=== PATIENT | male | born 1950 | race Caucasian/White ===

== ENCOUNTER → 2017-09-08 16:43 | Outpatient (CLI) | payer BC, SELFPAY ==
[2017-09-08 18:24] LABS: AST(SGOT) 46 U/L (15-37); Alanine Aminotransfer ALT/SGPT 35 U/L (16-61); Albumin, Serum 2.4 g/dL (3.2-5.0); Alkaline Phosphatase 278 U/L (45-117); Anion Gap 4 (5-15); BUN 17 mg/dL (7-18); BUN/Creat Ratio 11.2 RATIO (10-20); Calcium,Total 8.1 mg/dL (8.5-10.1); Chloride 109 mmol/L (98-107); Cholesterol 101 mg/dL (200); Creatinine, Serum 1.52 mg/dL (0.70-1.30); EST Glomerular Filtration Rate 49 mL/min (>60); Est Glom Filt Rate - Afr Amer 59 mL/min (>60); Globulin 4.3 g/dL (2.2-4.2); Glucose 170 mg/dL (74-106); High Density Lipoprotein 35 mg/dL; Potassium 4.4 mmol/L (3.5-5.1); Protein, Total 6.7 g/dL (6.4-8.2); Sodium Level 140 mmol/L (136-145); Triglycerides 66 mg/dL; Very Low Density Lipoprotein 13 mg/dL (5-40)
[2017-09-09 06:57] LABS: Hemoglobin A1c 6.2 % (4.2-6.3)
== END ==
PROVIDERS: Family Provider Family Medicine; PCP Family Medicine; Visit Provider Family Medicine
DX: E11.9 Type 2 diabetes mellitus without complications (principal); K75.4 Autoimmune hepatitis
CPT/HCPCS: 36415; 80048; 80061; 80076; 82140; 83036

== ENCOUNTER → 2017-12-23 13:46 | Outpatient (CLI) | payer BC, SELFPAY ==
[2017-12-23 16:00] LABS: AST(SGOT) 46 U/L (15-37); Alanine Aminotransfer ALT/SGPT 37 U/L (16-61); Albumin, Serum 2.3 g/dL (3.2-5.0); Alkaline Phosphatase 264 U/L (45-117); Anion Gap 8 (5-15); BUN 19 mg/dL (7-18); BUN/Creat Ratio 12.1 RATIO (10-20); Bilirubin, Direct 1.06 mg/dL (0.00-0.30); Calcium,Total 8.2 mg/dL (8.5-10.1); Chloride 103 mmol/L (98-107); Cholesterol 98 mg/dL (200); Creatinine, Serum 1.57 mg/dL (0.70-1.30); EST Glomerular Filtration Rate 47 mL/min (>60); Est Glom Filt Rate - Afr Amer 57 mL/min (>60); Globulin 4.6 g/dL (2.2-4.2); Glucose 222 mg/dL (74-106); High Density Lipoprotein 42 mg/dL; Potassium 3.7 mmol/L (3.5-5.1); Protein, Total 6.9 g/dL (6.4-8.2); Sodium Level 139 mmol/L (136-145); Triglycerides 68 mg/dL; Very Low Density Lipoprotein 14 mg/dL (5-40)
== END ==
PROVIDERS: Family Provider Family Medicine; PCP Family Medicine; Visit Provider Family Medicine
DX: E11.9 Type 2 diabetes mellitus without complications (principal)
CPT/HCPCS: 36415; 80048; 80061; 80076

== ENCOUNTER 2018-01-21 04:33 | Emergency (ER) | payer BC, SELFPAY ==
[2018-01-21 04:34] VITALS: BP 156/66; PULSE 92; RESP 16; TEMP 36.6; O2SAT 94; BMI 37.4
--- NOTE | 2018-01-21 05:02 | RAD_ITS ---
STUDY: X-RAY CHEST REASON FOR EXAM: Male, 67 years old. Chest pain after recent fall. TECHNIQUE: Single AP portable view of the chest. COMPARISON: Prior comparison studies are not available for review at this time. FINDINGS: The patient has had a sternotomy. The lungs are expanded. There is mild interstitial thickening present in both lungs. There is suggestion for patchy left basilar airspace consolidation and/or atelectasis. This could represent pneumonia or sequela of pulmonary contusion. There is blunting of left lateral costophrenic angle, possibly secondary to small effusion. There is borderline cardiomegaly. Normal mediastinum and nurys. There is prominence of the pulmonary hilar arteries with peripheral pulmonary vascular congestion. There is atherosclerotic calcification of the aortic arch with tortuosity. There are diffuse degenerative changes of the visualized thoracic spine. Normal visualized ribs, clavicles, and shoulders. Surgical clips are visible in the epigastric area. RAD/Chest 1 View (Portable) IMPRESSION: 1. Patchy left basilar airspace disease possibly representing pneumonia, atelectasis or pulmonary hemorrhage. 2. Borderline cardiomegaly and mild pulmonary congestion. Electronically Signed: Lashell Glass MD at 8:05 EDT , Service support ,
--- NOTE | 2018-01-21 05:02 | EKG12_ITS ---
Test Reason : FALL Blood Pressure : / mmHG Vent. Rate : 092 BPM Atrial Rate : 092 BPM P-R Int : 166 ms QRS Dur : 098 ms QT Int : 394 ms P-R-T Axes : 044 033 048 degrees QTc Int : 487 ms Sinus rhythm with Premature atrial complexes Prolonged QT Abnormal ECG Confirmed by ANTONIA HARRY, CHRISTIE ([id number]), editor book FRAN DEL ROSARIO ([id number]) on 01/23/2018 3:09:38 PM Referred By: BETSY Confirmed By:CHRISTIE KNIGHT MD
--- NOTE | 2018-01-21 05:06 | RAD_ITS ---
STUDY: X-RAY - PELVIS AND LEFT HIP REASON FOR EXAM: Male, 67 years old. Fall. Left hip pain. TECHNIQUE: Radiological exam, hip, unilateral, with pelvis when performed; 2 or 3 views. COMPARISON: None. FINDINGS: There is increased stool in the visualized mildly distended rectosigmoid colon. There are atherosclerotic vascular calcifications of the pelvic arteries. Chronic cortical/bony changes of the superior iliac margins are seen bilaterally. Unremarkable sacroiliac joints and visualized sacrum. Normal bilateral superior and inferior pubic rami. Normal pubic symphysis. There is a partially impacted/angulated subcapital fracture of the left femoral neck demonstrated. Normal acetabulum. There is mild articular joint space narrowing of the hip. Degenerative spondylolysis of the visualized lumbosacral spine. A right hip mild degenerative arthrosis. RAD/HIP, UNI W/ Pelvis 2-3 Views IMPRESSION: An impacted/angulated subcapital fracture of the left femoral neck is demonstrated. Electronically Signed: Augustin Shaver MD at 8:23 EDT Tel , Service support ,
--- NOTE | 2018-01-21 05:10 | ED.VISSUMM ---
- ER Visit Summary Date of Service: 01/21/18 Chief Complaint: Left hip injury History of Present Illness: The patient is a 67 M brought by EMS for left hip injury occurring at 1:30 AM this morning. Some other states patient has a man cave away from the house, getting up off the recliner when he tripped falling back on the hip. Reported EMS was called for lift assist, he was placed back in the chair. Some other states called her to bring him in the house, she is unable to get him off the couch therefore EMS was called again. There is no second fall. History of previous orthopedic surgeries in [place], does not currently follow an orthopedist. Has had right ankle repair and left knee scopes. History of Navarrete with cirrhosis with previous paracentesis, none recently. He is on rifaximin mean. History of CABG surgery in the past, followed by Dr. Atkins. Denies any current anticoagulant including aspirin. There is no head injuries from the falls. No neck or back pain. Pain with movement in the left lower extremity. Physical Examination: General: Alert and oriented ?3, no acute distress HEENT: Normocephalic, atraumatic. Moist mucosa membranes Neck: supple, nontender. Cardiovascular: Regular rate and rhythm, no murmurs Respiratory: Normal breath sounds, symmetric, no distress Abdomen: Soft, nontender, distended, midline healed incision. Extremities: Left lower extremity: Shortened and externally rotated. Positive logroll. Neurovascular intact distally. Neuro: no focal neurological deficits. Test Results: EKG sinus rate of [address] or T wave changes. PACs noted. Chest x-ray negative. Left hip x-ray displaced left femoral neck fracture White count 7.5 hemoglobin 14.4. Platelets 67. Potassium 3.6. Creatinine 1.57. INR 1.5. ALT 44 AST 66 ALP 361 total bili 2.4. Emergency Department Course and Treatment: Patient with mechanical fall, left hip is shortened and externally rotated. Workup initiated x-ray confirms displaced left femoral neck fracture. Chest x-ray EKG stable. Patient history of Navarrete with cirrhosis, coagulopathy noted on labs with platelets 67. I did discuss with covering orthopedist, Dr. Genaro Glass, he discussed with medicine anesthesia and clear he would plan on surgery. I spoke with hospitalist Dr. Fontenot, who feels with his coagulopathy history he would require higher level of care with specialists. Discussed with patient and family, they would like to go to [place]. [facility] on page for discussion for transfer for further management. Patient did have creatinine 1.57, comparison old labs, this is stable from previous. Spoke with [facility] transfer line, they spoke with orthopedist Dr. Patel, they would like the patient to go through the ED for evaluation. I spoke with the ED physician Dr. Hendricks who will except for transfer. Treatment Plan: [] Disposition: Transfer Impression: 1. Closed left hip fracture 2. Navarrete with cirrhosis 3. Chronic kidney disease 4. Thrombocytopenia This note was generated with [employer] dictation software. It may contain incorrect words, spelling, and punctuation that were not noted in review of the chart prior to signing ED Disposition - Plan for ED Patient: Disposition: [facility] Chief Complaint: Fall Diagnosis: Closed left hip fracture, Liver cirrhosis secondary to NAVARRETE, Chronic kidney disease, Thrombocytopenia Referrals: Davonte Galo MD [Primary Care Provider] -
--- NOTE | 2018-01-21 05:13 | ED.DCSUM_ITS ---
- ER Visit Summary Date of Service: 01/21/18 Chief Complaint: Left hip injury History of Present Illness: The patient is a 67 M brought by EMS for left hip injury occurring at 1:30 AM this morning. Some other states patient has a man cave away from the house, getting up off the recliner when he tripped falling back on the hip. Reported EMS was called for lift assist, he was placed back in the chair. Some other states called her to bring him in the house, she is unable to get him off the couch therefore EMS was called again. There is no second fall. History of previous orthopedic surgeries in [place], does not currently follow an orthopedist. Has had right ankle repair and left knee scopes. History of Navarrete with cirrhosis with previous paracentesis, none recently. He is on rifaximin mean. History of CABG surgery in the past, followed by Dr. Atkins. Denies any current anticoagulant including aspirin. There is no head injuries from the falls. No neck or back pain. Pain with movement in the left lower extremity. Physical Examination: General: Alert and oriented ?3, no acute distress HEENT: Normocephalic, atraumatic. Moist mucosa membranes Neck: supple, nontender. Cardiovascular: Regular rate and rhythm, no murmurs Respiratory: Normal breath sounds, symmetric, no distress Abdomen: Soft, nontender, distended, midline healed incision. Extremities: Left lower extremity: Shortened and externally rotated. Positive logroll. Neurovascular intact distally. Neuro: no focal neurological deficits. Test Results: EKG sinus rate of [address] or T wave changes. PACs noted. Chest x-ray negative. Left hip x-ray displaced left femoral neck fracture White count 7.5 hemoglobin 14.4. Platelets 67. Potassium 3.6. Creatinine 1.57. INR 1.5. ALT 44 AST 66 ALP 361 total bili 2.4. Emergency Department Course and Treatment: Patient with mechanical fall, left hip is shortened and externally rotated. Workup initiated x-ray confirms displaced left femoral neck fracture. Chest x-ray EKG stable. Patient history of Navarrete with cirrhosis, coagulopathy noted on labs with platelets 67. I did discuss with covering orthopedist, Dr. Genaro Glass, he discussed with medicine anesthesia and clear he would plan on surgery. I spoke with hospitalist Dr. Fontenot, who feels with his coagulopathy history he would require higher level of care with specialists. Discussed with patient and family, they would like to go to [place]. [facility] on page for discussion for transfer for further management. Patient did have creatinine 1.57, comparison old labs, this is stable from previous. Spoke with [facility] transfer line, they spoke with orthopedist Dr. Patel, they would like the patient to go through the ED for evaluation. I spoke with the ED physician Dr. Hendricks who will except for transfer. Treatment Plan: [] Disposition: Transfer Impression: 1. Closed left hip fracture 2. Navarrete with cirrhosis 3. Chronic kidney disease 4. Thrombocytopenia This note was generated with [employer] dictation software. It may contain incorrect words, spelling, and punctuation that were not noted in review of the chart prior to signing ED Disposition - Plan for ED Patient: Disposition: [facility] Chief Complaint: Fall Diagnosis: Closed left hip fracture, Liver cirrhosis secondary to NAVARRETE, Chronic kidney disease, Thrombocytopenia Referrals: Davonte Galo MD [Primary Care Provider] -
[2018-01-21] MEDS: Morphine 4 MG/ML Syringe IV ×2 (05:39→07:10)
[2018-01-21] MEDS: 0.9% Normal Saline 1,000 ML 150 ML IV (06:27)
[2018-01-21 06:34] LABS: International Normalized Ratio 1.5; Prothrombin Time (Protime)PT. 17.8 SECONDS (11.7-14.9)
[2018-01-21 06:35] LABS: Partial Thromboplast Time 39.9 Seconds (24.1-36.2)
[2018-01-21 06:39] LABS: Absolute Lymphocyte Count 0.47 X10^3/ul (0.83-4.51); Absolute Neutrophil Count 6.4 X10^3/uL (2.0-7.7); Basophil# 0.01 X10^3/uL; Basophil% 0.1 % (0-1); Eosinophil# 0.03 X10^3/uL; Eosinophils% 0.4 % (0-5); Hematocrit 41.6 % (40-54); Hemoglobin 14.4 g/dl (13.0-16.5); Lymphocyte # 0.47 X10^3/ul (4.0); Lymphocyte % 6.3 % (19-41); Mean Corp Hgb Conc 34.6 g/gl (32-36); Mean Corpuscular Hgb 32.1 pg (27.0-32.0); Mean Corpuscular Volume 92.7 fL (80-94); Mean Platelet Vol. 11.2 fl (6.2-12.0); Neutrophil # 6.35 X10^3/uL (2.7-7.7); Neutrophil % 84.9 % (47-70); Platelet Count 67 K/mm3 (150-450); RBC Distribution Width CV 14.8 % (11.6-14.6); RBC Distribution Width SD 49.3 fl (35.1-43.9); Red Blood Count 4.49 M/mm3 (4.6-6.2); White Blood Count 7.5 K/mm3 (4.4-11.0)
[2018-01-21 06:40] LABS: Differential Indicated SCAN CRITERIA MET; POSITIVE COUNT NO; POSITIVE DIFFERENTIAL YES; POSITIVE MORPHOLOGY NO
[2018-01-21 06:41] LABS: ALB/GLOB Ratio 0.5 RATIO (0.9-2.4); AST(SGOT) 66 U/L (15-37); Alanine Aminotransfer ALT/SGPT 44 U/L (16-61); Albumin, Serum 2.2 g/dL (3.2-5.0); Alkaline Phosphatase 361 U/L (45-117); Anion Gap 8 (5-15); BUN 20 mg/dL (7-18); BUN/Creat Ratio 12.7 RATIO (10-20); Calcium,Total 8.3 mg/dL (8.5-10.1); Chloride 105 mmol/L (98-107); Creatinine, Serum 1.57 mg/dL (0.70-1.30); EST Glomerular Filtration Rate 47 mL/min (>60); Est Glom Filt Rate - Afr Amer 57 mL/min (>60); Estimated Creatinine Clearance 40.64 ml/min; Globulin 4.6 g/dL (2.2-4.2); Glucose 226 mg/dL (74-106); Potassium 3.6 mmol/L (3.5-5.1); Protein, Total 6.8 g/dL (6.4-8.2); Sodium Level 138 mmol/L (136-145)
[2018-01-21 07:53] VITALS: BP 160/90; PULSE 84; RESP 16; O2SAT 95
[2018-01-21 08:24] VITALS: BP 175/89; PULSE 71; RESP 16; TEMP 36.7; O2SAT 97
== END 2018-01-21 08:58 | disposition short-term general hospital (02) ==
PROVIDERS: Emergency Provider Emergency Medicine; Family Provider Family Medicine; PCP Family Medicine
DX: S72.002A Fracture of unspecified part of neck of left femur, initial encounter for closed fracture (principal); W01.0XXA Fall on same level from slipping, tripping and stumbling without subsequent striking against object, initial encounter; Y93.9 Activity, unspecified; Y92.099 Unspecified place in other non-institutional residence as the place of occurrence of the external cause; Y99.9 Unspecified external cause status; K75.81 Nonalcoholic steatohepatitis (NASH); K74.60 Unspecified cirrhosis of liver; N18.4 Chronic kidney disease, stage 4 (severe); D69.6 Thrombocytopenia, unspecified; I25.10 Atherosclerotic heart disease of native coronary artery without angina pectoris; Z95.1 Presence of aortocoronary bypass graft; Z85.038 Personal history of other malignant neoplasm of large intestine
CPT/HCPCS: 36415; 71045; 73502; 80053; 85025; 85610; 85730; 86850; 86900; 93005; 99285; J7030; A4216

== ENCOUNTER → 2018-04-20 15:11 | Outpatient (CLI) | payer BC, SELFPAY ==
[2018-04-20 17:58] LABS: Absolute Lymphocyte Count 1.25 X10^3/ul (0.83-4.51); Absolute Neutrophil Count 2.5 X10^3/uL (2.0-7.7); Basophil# 0.01 X10^3/uL; Basophil% 0.2 % (0-1); Eosinophil# 0.19 X10^3/uL; Eosinophils% 4.4 % (0-5); Hematocrit 34.2 % (40-54); Hemoglobin 10.7 g/dl (13.0-16.5); Lymphocyte # 1.25 X10^3/ul (4.0); Lymphocyte % 29.3 % (19-41); Mean Corp Hgb Conc 31.3 g/gl (32-36); Mean Corpuscular Hgb 29.4 pg (27.0-32.0); Monocyte# 0.34 X10^3/uL; Neutrophil # 2.48 X10^3/uL (2.7-7.7); Neutrophil % 58.1 % (47-70); Platelet Count 83 K/mm3 (150-450); RBC Distribution Width CV 14.9 % (11.6-14.6); RBC Distribution Width SD 51.2 fl (35.1-43.9); Red Blood Count 3.64 M/mm3 (4.6-6.2); White Blood Count 4.3 K/mm3 (4.4-11.0)
[2018-04-20 18:02] LABS: POSITIVE COUNT NO; POSITIVE DIFFERENTIAL NO; POSITIVE MORPHOLOGY NO
[2018-04-20 18:04] LABS: ALB/GLOB Ratio 0.4 RATIO (0.9-2.4); AST(SGOT) 50 U/L (15-37); Alanine Aminotransfer ALT/SGPT 28 U/L (16-61); Albumin, Serum 1.9 g/dL (3.2-5.0); Alkaline Phosphatase 296 U/L (45-117); Anion Gap 8 (5-15); BUN 14 mg/dL (7-18); BUN/Creat Ratio 11.1 RATIO (10-20); Calcium,Total 7.7 mg/dL (8.5-10.1); Chloride 110 mmol/L (98-107); Creatinine, Serum 1.26 mg/dL (0.70-1.30); EST Glomerular Filtration Rate 60 mL/min (>60); Est Glom Filt Rate - Afr Amer 73 mL/min (>60); Globulin 4.7 g/dL (2.2-4.2); Glucose 159 mg/dL (74-106); Potassium 3.8 mmol/L (3.5-5.1); Protein, Total 6.6 g/dL (6.4-8.2); Sodium Level 142 mmol/L (136-145)
== END ==
PROVIDERS: Family Provider Family Medicine; PCP Family Medicine; Visit Provider Family Medicine
DX: K72.90 Hepatic failure, unspecified without coma (principal)
CPT/HCPCS: 36415; 80053; 82140; 85025

== ENCOUNTER → 2018-06-10 10:44 | Outpatient (CLI) | payer BC, SELFPAY ==
[2018-06-05 11:33] VITALS: BMI 33.8
[2018-06-10 12:09] LABS: Color, Urine Yellow (Yellow); Glucose, Dipstick Normal (Normal); Ketone-Dipstick Negative (Negative); Leukocyte Esterase-Dipstick 500 /ul (Negative); Nitrite-Dipstick Negative (Negative); Occult Blood-Urine 250 /ul (Negative); Protein-Dipstick 30 mg/dl (Negative); Urine Bilirubin Dipstick Negative (Negative); Urine Clarity Sl. Cloudy (Clear); Urine Urobilinogen Normal (Normal)
== END ==
PROVIDERS: Family Provider Family Medicine; PCP Family Medicine; Referring Provider Family Medicine; Visit Provider Family Medicine
DX: R73.9 Hyperglycemia, unspecified (principal)
CPT/HCPCS: 81002; 87086; 87088

== ENCOUNTER → 2018-06-26 11:22 | Outpatient (CLI) | payer BC, SELFPAY ==
[2018-06-05 11:33] VITALS: BMI 33.8
[2018-06-26 14:23] LABS: Absolute Lymphocyte Count 0.82 X10^3/ul (0.83-4.51); Absolute Neutrophil Count 1.8 X10^3/uL (2.0-7.7); Basophil# 0.01 X10^3/uL; Basophil% 0.3 % (0-1); Eosinophils% 3.3 % (0-5); Hematocrit 34.1 % (40-54); Hemoglobin 10.6 g/dl (13.0-16.5); Lymphocyte # 0.82 X10^3/ul (4.0); Lymphocyte % 26.9 % (19-41); Mean Corp Hgb Conc 31.1 g/gl (32-36); Mean Corpuscular Hgb 30.1 pg (27.0-32.0); Mean Corpuscular Volume 96.9 fL (80-94); Mean Platelet Vol. 12.5 fl (6.2-12.0); Monocyte# 0.32 X10^3/uL; Monocyte% 10.5 % (0-10); Neutrophil # 1.79 X10^3/uL (2.7-7.7); Neutrophil % 58.7 % (47-70); Platelet Count 64 K/mm3 (150-450); RBC Distribution Width CV 15.3 % (11.6-14.6); RBC Distribution Width SD 52.3 fl (35.1-43.9); Red Blood Count 3.52 M/mm3 (4.6-6.2); White Blood Count 3.1 K/mm3 (4.4-11.0)
[2018-06-26 14:26] LABS: POSITIVE COUNT NO; POSITIVE DIFFERENTIAL NO; POSITIVE MORPHOLOGY NO
[2018-06-26 14:45] LABS: AST(SGOT) 54 U/L (15-37); Alanine Aminotransfer ALT/SGPT 37 U/L (16-61); Albumin, Serum 1.9 g/dL (3.2-5.0); Alkaline Phosphatase 357 U/L (45-117); Anion Gap 5 (5-15); BUN 19 mg/dL (7-18); Bilirubin, Direct 0.72 mg/dL (0.00-0.30); Calcium,Total 7.7 mg/dL (8.5-10.1); Chloride 107 mmol/L (98-107); Creatinine, Serum 1.27 mg/dL (0.70-1.30); EST Glomerular Filtration Rate 60 mL/min (>60); Est Glom Filt Rate - Afr Amer 72 mL/min (>60); Globulin 4.6 g/dL (2.2-4.2); Glucose 264 mg/dL (74-106); Potassium 3.8 mmol/L (3.5-5.1); Protein, Total 6.5 g/dL (6.4-8.2); Sodium Level 139 mmol/L (136-145)
[2018-06-26 14:57] LABS: International Normalized Ratio 1.5; Partial Thromboplast Time 41.9 Seconds (24.1-36.2); Prothrombin Time (Protime)PT. 18.4 SECONDS (11.7-14.9)
== END ==
PROVIDERS: Family Provider Family Medicine; PCP Family Medicine; Referring Provider Family Medicine
DX: K75.81 Nonalcoholic steatohepatitis (NASH) (principal); K74.60 Unspecified cirrhosis of liver; C22.0 Liver cell carcinoma; Z01.818 Encounter for other preprocedural examination
CPT/HCPCS: 36415; 80048; 80076; 85025; 85610; 85730

== ENCOUNTER → 2018-09-15 10:42 | Outpatient (CLI) | payer BC, SELFPAY ==
[2018-09-15 10:34] VITALS: BMI 33.8
--- NOTE | 2018-09-15 10:43 | RAD_ITS ---
STUDY: X-RAY - PELVIS AND LEFT HIP REASON FOR EXAM: Male, 68 years old. Pain. Hip arthroplasty. TECHNIQUE: 3 views of the pelvis and hip. COMPARISON: 01/21/2018 FINDINGS: A left hip arthroplasty has a normal appearance with no evidence for complication. No dislocation. No other acute abnormalities. Calcified vascular structures. RAD/HIP, UNI W/ Pelvis 2-3 Views IMPRESSION: Satisfactory appearance of a left hip arthroplasty. Electronically Signed: Darci Whitman MD at 23:53 EDT , Service support ,
== END ==
PROVIDERS: Family Provider Family Medicine; PCP Family Medicine; Referring Provider Orthopaedic Surgery; Visit Provider Orthopaedic Surgery
DX: M25.552 Pain in left hip (principal)
CPT/HCPCS: 73502

== ENCOUNTER → 2018-09-15 11:36 | Outpatient (CLI) | payer BC, SELFPAY ==
[2018-09-15 10:34] VITALS: BMI 33.8
[2018-09-15 13:58] LABS: International Normalized Ratio 1.5; Partial Thromboplast Time 40.7 Seconds (24.1-36.2); Prothrombin Time (Protime)PT. 17.7 SECONDS (11.7-14.9)
[2018-09-15 14:02] LABS: Erythrocyte Sedimentation Rate 30 mm/hr (0-20)
[2018-09-15 14:09] LABS: Absolute Lymphocyte Count 1.49 X10^3/ul (0.83-4.51); Absolute Neutrophil Count 2.3 X10^3/uL (2.0-7.7); Basophil# 0.01 X10^3/uL; Basophil% 0.2 % (0-1); Eosinophil# 0.14 X10^3/uL; Eosinophils% 3.2 % (0-5); Hematocrit 35.6 % (40-54); Hemoglobin 11.4 g/dl (13.0-16.5); Lymphocyte # 1.49 X10^3/ul (4.0); Lymphocyte % 33.6 % (19-41); Mean Corpuscular Hgb 29.6 pg (27.0-32.0); Mean Corpuscular Volume 92.5 fL (80-94); Mean Platelet Vol. 11.1 fl (6.2-12.0); Monocyte# 0.49 X10^3/uL; Neutrophil # 2.31 X10^3/uL (2.7-7.7); Platelet Count 54 K/mm3 (150-450); RBC Distribution Width CV 15.4 % (11.6-14.6); RBC Distribution Width SD 50.9 fl (35.1-43.9); Red Blood Count 3.85 M/mm3 (4.6-6.2); White Blood Count 4.4 K/mm3 (4.4-11.0)
[2018-09-15 14:10] LABS: POSITIVE COUNT NO; POSITIVE DIFFERENTIAL NO; POSITIVE MORPHOLOGY NO
[2018-09-15 14:25] LABS: AST(SGOT) 40 U/L (15-37); Alanine Aminotransfer ALT/SGPT 31 U/L (16-61); Albumin, Serum 2.1 g/dL (3.2-5.0); Alkaline Phosphatase 343 U/L (45-117); BUN 22 mg/dL (7-18); Bilirubin, Direct 1.04 mg/dL (0.00-0.30); Calcium,Total 8.1 mg/dL (8.5-10.1); Chloride 109 mmol/L (98-107); Creatinine, Serum 1.41 mg/dL (0.70-1.30); EST Glomerular Filtration Rate 53 mL/min (>60); Est Glom Filt Rate - Afr Amer 64 mL/min (>60); Glucose 80 mg/dL (74-106); Sodium Level 141 mmol/L (136-145)
== END ==
PROVIDERS: Orthopaedic Surgery; Family Provider Family Medicine; PCP Family Medicine; Referring Provider Family Medicine
DX: M25.559 Pain in unspecified hip (principal); K75.81 Nonalcoholic steatohepatitis (NASH); K74.60 Unspecified cirrhosis of liver; C22.0 Liver cell carcinoma; Z01.818 Encounter for other preprocedural examination
CPT/HCPCS: 36415; 82040; 82247; 82248; 82310; 82374; 82435; 82565; 82947; 84075; 84132; 84295; 84450; 84460; 84520; 85025; 85610; 85652; 85730; 86140

== ENCOUNTER → 2018-10-05 05:55 | Outpatient (CLI) | payer BC, SELFPAY ==
[2018-09-15 10:34] VITALS: BMI 33.8
--- NOTE | 2018-10-05 05:55 | NM_ITS ---
CLINICAL: 68-year-old male with reported history of painful left hip arthroplasty operated December 2017. WHOLE BODY 99m Tc HMPAO LABELED LEUKOCYTE EXAMINATION COMPARISON: Plain film radiograph report left hip 09/15/2018 FINDINGS: Following the intravenous administration of 21.8 mCi of 99m Tc HMPAO labeled leukocytes, whole body image acquisitions obtained at approximately 2.0 hours post radiopharmaceutical administration reveal: 1. Mild increased radiopharmaceutical concentration is defined in the inferior acetabular, lesser trochanteric aspect, distal femoral components of the painful left hip prosthesis. 2. The spleen is markedly enlarged with facilitated uniform radiopharmaceutical concentration. There is minimal visualization of the hepatic parenchyma. Pulmonary blood pool, vague intestinal tract, urinary bladder and appendicular, axial skeletal marrow distribution of the radiopharmaceutical is defined. NM/Inflammatory Process WB IMPRESSION: 1. The increased radiopharmaceutical concentration identified in the acetabulum, trochanteric and femoral components of the symptomatic left hip arthroplasty may be secondary to low-grade prosthetic sepsis. To facilitate the specificity of this finding, correlation with Tc sulfur imaging may be of benefit. 2. There is evidence of visualized splenomegaly with overall increased radiopharmaceutical concentration which may be secondary to a hematological dyscrasia. Electronically Signed: Kalia Watkins DO at 10:25 EDT Tel , Service support ,
== END ==
PROVIDERS: Family Provider Family Medicine; PCP Family Medicine; Referring Provider Orthopaedic Surgery; Visit Provider Orthopaedic Surgery
DX: M25.552 Pain in left hip (principal); Z96.642 Presence of left artificial hip joint
CPT/HCPCS: 78806; A9521

== ENCOUNTER → 2018-11-21 16:05 | Outpatient (CLI) | payer BC, SELFPAY ==
[2018-09-15 10:34] VITALS: BMI 33.8
[2018-11-21 18:03] LABS: Absolute Lymphocyte Count 0.83 X10^3/uL (0.83-4.51); Absolute Neutrophil Count 2.5 X10^3/uL (2.0-7.7); Basophil# 0.01 X10^3/uL; Basophil% 0.3 % (0-1); Eosinophil# 0.14 X10^3/uL; Eosinophils% 3.6 % (0-5); Hematocrit 33.2 % (40-54); Hemoglobin 10.6 g/dL (13.0-16.5); Lymphocyte # 0.83 X10^3/ul (4.0); Lymphocyte % 21.6 % (19-41); Mean Corp Hgb Conc 31.9 g/dL (32-36); Mean Corpuscular Hgb 30.6 pg (27.0-32.0); Mean Platelet Vol. 12.9 fl (6.2-12.0); Monocyte# 0.38 X10^3/uL; Monocyte% 9.9 % (0-10); NRBC Flagged by Analyzer 0 % (0-5); Neutrophil # 2.47 X10^3/uL (2.7-7.7); Neutrophil % 64.1 % (47-70); Platelet Count 59 K/mm3 (150-450); RBC Distribution Width CV 14.8 % (11.6-14.6); RBC Distribution Width SD 52.2 fl (35.1-43.9); Red Blood Count 3.46 M/mm3 (4.6-6.2); White Blood Count 3.9 K/mm3 (4.4-11.0)
[2018-11-21 18:19] LABS: AST(SGOT) 48 U/L (15-37); Alanine Aminotransfer ALT/SGPT 38 U/L (16-61); Albumin, Serum 1.9 g/dL (3.2-5.0); Alkaline Phosphatase 362 U/L (45-117); Anion Gap 6 (5-15); BUN 21 mg/dL (7-18); BUN/Creat Ratio 16.2 RATIO (10-20); Bilirubin, Direct 0.91 mg/dL (0.00-0.30); Calcium,Total 7.9 mg/dL (8.5-10.1); Chloride 108 mmol/L (98-107); EST Glomerular Filtration Rate 58 mL/min (>60); Est Glom Filt Rate - Afr Amer 70 mL/min (>60); Glucose 205 mg/dL (74-106); Potassium 4.2 mmol/L (3.5-5.1); Sodium Level 140 mmol/L (136-145)
[2018-11-21 18:38] LABS: International Normalized Ratio 1.7; Prothrombin Time (Protime)PT. 19.4 SECONDS (11.7-14.9)
[2018-11-21 18:39] LABS: Partial Thromboplast Time 41.8 Seconds (24.1-36.2)
== END ==
PROVIDERS: Family Provider Family Medicine; PCP Family Medicine; Referring Provider Family Medicine
DX: K75.81 Nonalcoholic steatohepatitis (NASH) (principal); K74.60 Unspecified cirrhosis of liver; C22.0 Liver cell carcinoma; Z01.818 Encounter for other preprocedural examination
CPT/HCPCS: 36415; 80048; 82040; 82247; 82248; 84075; 84450; 84460; 85025; 85610; 85730

== ENCOUNTER → 2018-12-14 12:24 | Outpatient (CLI) | payer BC, SELFPAY ==
[2018-09-15 10:34] VITALS: BMI 33.8
== END ==
PROVIDERS: Family Provider Family Medicine; PCP Family Medicine; Referring Provider Family Medicine; Visit Provider Family Medicine
DX: N39.0 Urinary tract infection, site not specified (principal)
CPT/HCPCS: 87086; 87088